=== PATIENT | male | born 1965 | race Caucasian/White ===

== ENCOUNTER 2018-08-13 17:46 | Emergency (ER) | payer OTHER ==
[2018-08-13] MEDS: DIPHENHYDRAMINE 50 MG INJ IM (18:58)
[2018-08-13] MEDS: DEXAMETHASONE 10 MG/ML 1 ML INJ IM (18:58)
== END 2018-08-13 20:21 | disposition home or self-care (01) ==
LOC: FTE 17:46
DX: R21 Rash and other nonspecific skin eruption (principal); I10 Essential (primary) hypertension; Z79.82 Long term (current) use of aspirin
CPT/HCPCS: 96372; 99284-25

== ENCOUNTER 2018-12-11 14:25 | Emergency (ER) | payer OTHER | END 2018-12-11 17:51 | disposition home or self-care (01) | LOC: FTE 14:25 | DX: L73.9 Follicular disorder, unspecified (principal); I10 Essential (primary) hypertension; Z76.0 Encounter for issue of repeat prescription; Z79.82 Long term (current) use of aspirin; Z87.891 Personal history of nicotine dependence | CPT/HCPCS: 99283; Z7502 ==